=== PATIENT | female | born 1980 | race African-American/Black ===

== ENCOUNTER 2025-05-02 15:49 | Emergency (ER) | payer SELFPAY ==
[~2025-05-02] VITALS: Ht 160 cm; Wt 104.0 kg
[2025-05-02 16:08] VITALS: O2SAT 96
[2025-05-02] MEDS ORDERED: NAPR-1176 MT (18:36)
[2025-05-02] MEDS ORDERED: AMOX-494 MT (18:36)
[2025-05-02] MEDS ORDERED: CIPHCO RIGHT EAR (18:36)
[2025-05-02 18:58] VITALS: BP 119/60; PULSE 82; RESP 18; TEMP 36.7; O2SAT 100
== END 2025-05-02 18:59 | disposition home or self-care (01) ==
LOC: ER 15:49
DX: H60.391 Other infective otitis externa, right ear (principal); H66.93 Otitis media, unspecified, bilateral; J45.909 Unspecified asthma, uncomplicated; Z98.84 Bariatric surgery status
CPT/HCPCS: 99283